=== PATIENT | female | born 1990 | race Caucasian/White ===

== ENCOUNTER 2016-11-19 23:38 | Emergency (ER) | payer OTHER ==
[2016-11-19 23:52] VITALS: TEMP 36.5; O2SAT 97
--- NOTE | 2016-11-19 23:54 | EMERGENCY ROOM VISIT NOTE ---
History Report prepared by Pascale: Edd Summers Under the Supervision of: Dr. Jose A Dill M.D. First contact with patient: 23:48 Chief Complaint: ALCOHOL OVERDOSE Stated Complaint: ALCOHOL OVERDOSE History of Present Illness The patient is a 26 year old female who presents to the Emergency Room with a persistent alcohol overdose that started prior to arrival. Per the nursing staff , the patient was at a wedding and drank too much. She got to the point where she could not walk, and then she quit responding. The patient was then brought here by friends. History limited secondary to patient's intoxication. Source of History: nursing staff History Limited By: intoxication Onset: Prior to arrival Position: other (global - alcohol overdose) Timing: other (persistent) Note: Associated symptoms: Could not walk. Unresponsive. Review of Systems Review of systems is unobtainable due to alcohol intoxication. Past Medical & Surgical Medical Problems: (1) No chronic problems Family History No pertinent family history Social History Alcohol Use: occasionally Marital Status: single Occupation Status: other (unkown) Current/Historical Medications No Active Prescriptions or Reported Meds Allergies Coded Allergies: No Known Allergies (Unverified , 11/19/16) Physical Exam Vital Signs Date Time Temp Pulse Resp B/P (MAP) Pulse Ox O2 Delivery O2 Flow Rate FiO2 11/20/16 06:00 80 17 102/37 96 Room Air 11/20/16 05:30 87 19 82/35 97 Room Air 11/20/16 05:00 91 19 80/35 96 Room Air 11/20/16 04:30 83 18 88/36 97 Room Air 11/20/16 04:00 88 17 80/39 96 Room Air 11/20/16 03:50 84 11/20/16 03:30 86 18 106/70 97 Room Air 11/20/16 03:00 87 18 101/59 96 Room Air 11/20/16 02:30 88 17 99/61 96 Room Air 11/20/16 02:00 90 17 101/58 96 Room Air 11/20/16 01:30 88 18 112/57 96 Room Air 11/20/16 01:00 89 18 105/63 95 Room Air 11/20/16 00:30 85 23 113/65 99 Room Air 11/20/16 00:00 87 20 108/70 96 Room Air 11/19/16 23:52 98 11/19/16 23:52 97 Room Air 11/19/16 23:52 36.5 97 20 120/79 97 Room Air 11/19/16 23:50 98 Physical Exam GENERAL: Patient is heavily intoxicated. Obstinate and while clearly understands questions, refuses to answer them. Smells of alcohol. HEAD: No evidence of Trauma. AT/NC EYES: Injected conjunctiva. Normal EOM. Pupils equal/reactive. ENT: Mucous membranes moist, no nasal congestion, . NECK: No step-offs, no adenopathy, no meningismus, trachea is midline. LUNGS: No dyspnea. Clear to auscultation and equal bilaterally. No wheeze, no rhonchi. HEART: Regular rate and rhythm. No murmurs, rubs, gallops appreciated. ABDOMEN: Soft, nontender, bowel sounds positive, no masses appreciated, no peritonitis. BACK: No midline tenderness, no CVA tenderness EXTREMITIES: Normal motion all extremities, no cyanosis, no edema. NEUROLOGIC: Intoxicated. Somnolent. SKIN: No rash, no jaundice, no diaphoresis. Medical Decision & Procedures Laboratory Results 11/20/16 00:26 Test 11/20/16 00:26 Anion Gap 7.0 mmol/L (3-11) Estimated GFR () 129.3 Estimated GFR (Non- 111.6 BUN/Creatinine Ratio 14.1 (10-20) Calcium Level 8.5 mg/dl (8.5-10.1) Human Chorionic Gonadotropin, Qual NEG (NEG) Ethyl Alcohol mg/dL 270.0 mg/dl (0-3) Laboratory results as reviewed by me. ED Course 2349: The patient was evaluated in room A4B. A limited history and physical exam was performed. 0042: I reevaluated the patient and she is stable. 0615: I reevaluated the patient and we had a long chat. She is feeling hung- over but denies any shortness of breath or injuries. The patient verbally expressed understanding and agreement of the treatment plan. The patient will be discharged. Medical Decision Differential: Alcohol Intoxication, Drug Intoxication, Electrolyte Abnormality, Trauma, Intracranial Event, Toxicological, Excited Delirium, Serotonin Syndrome , amongst other pathologies entertained. 26 yr old intoxicated female brought in by friends after being heavily intoxicated at wedding. Initially refusing to really talk/being obstinate though eventually fell asleep. Patient with no evidence nor history for trauma. Protecting airway and breathing comfortably throughout ED stay. EtOH positive. Monitored and discharged when awake, alert, oriented and denies any complaints. Medication Reconcilliation Current Medication List: was personally reviewed by me No medications. Blood Pressure Screening Patient's blood pressure: Normal blood pressure Impression Primary Impression: Alcohol use with intoxication Scribe Attestation The scribe's documentation has been prepared under my direction and personally reviewed by me in its entirety. I confirm that the note above accurately reflects all work, treatment, procedures, and medical decision making performed by me. Departure Information Dispostion Home / Self-Care Prescriptions No Active Prescriptions or Reported Meds Referrals No Doctor, Assigned (PCP) Patient Instructions Alcohol Intoxication - [facility], My [facility]
[2016-11-20 00:55] LABS: BLOOD UREA NITROGEN 11 mg/dl (7-18); BUN/CREATININE RATIO 14.1 (10-20); CALCIUM 8.5 mg/dl (8.5-10.1); CARBON DIOXIDE 25 mmol/L (21-32); CHLORIDE 112 mmol/L (98-107); CREATININE 0.75 mg/dl (0.60-1.20); GLUCOSE 107 mg/dl (70-99); POTASSIUM 3.6 mmol/L (3.5-5.1); SODIUM 144 mmol/L (136-145)
[2016-11-20 01:08] LABS: PREG INTERNAL NEGATIVE QC NEG CLEAR BACKGROUND; PREG INTERNAL POSITIVE QC POS CONTROL LINE
[2016-11-20 06:00] VITALS: BP 102/37; PULSE 80; O2SAT 96
== END 2016-11-20 06:21 | disposition home or self-care (01) ==
LOC: C.EDB 23:39 → C.EDA 11-20 06:21
DX: F10.920 Alcohol use, unspecified with intoxication, uncomplicated (principal); Y90.8 Blood alcohol level of 240 mg/100 ml or more

== ENCOUNTER → 2017-03-23 | Outpatient (CLI) | payer OTHER | END | disposition home or self-care (01) | LOC: C.PAPS 15:32 | PROVIDERS: ATTEND Physician Assistant | DX: Z12.4 Encounter for screening for malignant neoplasm of cervix (principal) ==

== ENCOUNTER → 2017-03-23 | Outpatient (CLI) | payer OTHER | END | disposition home or self-care (01) | LOC: C.LABSPEC 15:24 | PROVIDERS: ATTEND Physician Assistant | DX: Z01.419 Encounter for gynecological examination (general) (routine) without abnormal findings (principal) ==

== ENCOUNTER → 2017-10-23 | Outpatient (CLI) | payer BC ==
--- NOTE | 2017-10-23 17:52 | DIAGNOSTIC IMAGING REPORT ---
R HAND MIN 3 VIEWS ROUTINE CLINICAL HISTORY: 27 years-old Female presenting with M25.541 Arthralgia of right hand Particularly interested in MCP, right hand pain without history of injury. TECHNIQUE: Frontal, oblique, and lateral views of the right hand were obtained. COMPARISON: None. FINDINGS: No evidence of osseous erosions or periosteal reaction. No acute fracture or malalignment. No advanced degenerative change. No radiographic soft tissue abnormality. IMPRESSION: No acute osseous injury. Electronically signed by: Eren Serrano M.D. 10/23/2017 5:50 PM Dictated Date/Time: 10/23/2017 5:49 PM
[2017-10-23 18:14] LABS: BASO % 0.5 %; BASO ABS # 0.04 K/uL (0-0.2); EOS % 0.9 %; EOS ABS # 0.08 K/uL (0-0.5); HEMATOCRIT 42.1 % (37-47); HEMOGLOBIN 14.3 g/dL (12.0-16.0); IG# 0.01 K/uL (0.00-0.02); LYMPH % 37.9 %; LYMPH ABS # 3.32 K/uL (1.2-3.4); MEAN CELL VOLUME 86.4 fL (80-100); MEAN CORPUSCULAR HEMOGLOBIN 29.4 pg (25-34); MEAN PLATELET VOLUME 9.8 fL (7.4-10.4); MONO % 7.2 %; MONO ABS # 0.63 K/uL (0.11-0.59); NEUT % 53.4 %; NEUT ABS # 4.67 K/uL (1.4-6.5); PLATELET COUNT 333 K/uL (130-400); RED CELL DISTRIBUTION WIDTH CV 12.4 % (11.5-14.5); WHITE BLOOD COUNT 8.75 K/uL (4.8-10.8)
[2017-10-23 18:40] LABS: BLOOD UREA NITROGEN 10 mg/dl (7-18); CALCIUM 9.4 mg/dl (8.5-10.1); CARBON DIOXIDE 23 mmol/L (21-32); CREATININE 0.87 mg/dl (0.60-1.20); GLUCOSE 93 mg/dl (70-99); POTASSIUM 3.6 mmol/L (3.5-5.1); SODIUM 136 mmol/L (136-145)
[2017-10-25 14:37] LABS: ANA SCREEN TC 249X NEGATIVE (NEGATIVE)
== END | disposition home or self-care (01) ==
LOC: C.LAB 17:02
PROVIDERS: ATTEND Nurse Practitioner
DX: Z00.00 Encounter for general adult medical examination without abnormal findings (principal); M25.541 Pain in joints of right hand